=== PATIENT | male | born 1935 ===

== ENCOUNTER 2017-11-26 08:19 | Outpatient (CLI) | payer BC | END 2017-11-26 08:20 | disposition home or self-care (01) | LOC: BICULT 08:19 | PROVIDERS: ATTEND Internal Medicine Nephrology | DX: I13.10 Hypertensive heart and chronic kidney disease without heart failure, with stage 1 through stage 4 chronic kidney disease, or unspecified chronic kidney disease (principal); N18.3 Chronic kidney disease, stage 3 (moderate); E78.5 Hyperlipidemia, unspecified; N40.0 Benign prostatic hyperplasia without lower urinary tract symptoms; N20.0 Calculus of kidney; D47.2 Monoclonal gammopathy | CPT/HCPCS: 76700; 76770 ==